=== PATIENT | male | born 1975 | race Caucasian/White ===

== ENCOUNTER 2022-11-03 08:55 | Emergency (ER) | payer BC ==
[~2022-11-03] VITALS: Wt 129.3 kg
[2022-11-03] MEDS ORDERED: MONTELUKAST SOD10 MG PO (09:15)
[2022-11-03] MEDS ORDERED: AMOX-CLAV 875-1 EACH PO (09:15)
[2022-11-03] MEDS ORDERED: PRAVASTATIN SOD40 MG PO (09:16)
[2022-11-03] MEDS ORDERED: OMEPRAZOLE40 MG PO (09:16)
[2022-11-03] MEDS ORDERED: TESTOSTERONE75 G2 TD (09:17)
[2022-11-03 09:47] LABS: BASO % 0.6 % (0.0-1.0); EOS % 0.6 % (1.0-4.0); HEMATOCRIT 45.6 % (42.0-52.0); LYMPH # 1.5 10*3/uL (1.3-4.4); MEAN CELL VOLUME 89.9 fl (80.0-94.0); MEAN CORPUSCULAR HGB 31.2 pg (27.0-31.0); MEAN CORPUSCULAR HGB CONC 34.6 g/dl (33.0-37.0); MEAN PLATELET VOLUME 9.3 fl (9.6-12.3); MONO # 0.4 10*3/uL (0.1-1.0); MONO % 7.8 % (3.0-9.0); NEUT # 3.4 10*3/uL (2.3-7.9); NEUT % 62.6 % (47.0-73.0); PLATELET COUNT AUTOMATED 190 10*3/uL (130-400); RED BLOOD COUNT 5.07 10*6/uL (4.50-5.90); RED CELL DISTRI WIDTH 12.8 % (0-14.5); WHITE BLOOD COUNT 5.4 10*3/uL (4.8-10.8)
[2022-11-03 09:58] LABS: ACT PARTIAL THROMBO TIME 24.8 SECONDS (20.0-32.1)
[2022-11-03 10:05] LABS: LIPASE 35 U/L (12-53)
[2022-11-03 10:07] LABS: ALKALINE PHOSPHATASE 58 U/L (46-116); BUN 15 mg/dl (9-23); CHLORIDE 103 mmol/L (98-107); POTASSIUM 4.2 mmol/L (3.4-5.1); SGPT/ALT 54 U/L (10-49); TOTAL PROTEIN 7.2 gm/dL (6.0-8.0)
== END 2022-11-03 12:22 | disposition home or self-care (01) ==
LOC: ED 08:55
PROVIDERS: Emergency Medicine
DX: J20.9 Acute bronchitis, unspecified (principal); R07.89 Other chest pain; R11.2 Nausea with vomiting, unspecified; R61 Generalized hyperhidrosis; Z79.2 Long term (current) use of antibiotics; Z79.899 Other long term (current) drug therapy